=== PATIENT | female | born 1955 | race African-American/Black ===

== ENCOUNTER 2019-08-26 15:45 | Emergency (ER) | payer OTHER ==
[~2019-08-26] VITALS: Ht 152.4 cm; Wt 97.5 kg
--- NOTE | 2019-08-26 16:04 | NUR ---
BIB FAMILY FOR WORSENING L HIP/LOWER BACK PAIN X 3 DAYS. DENIES TRAUMA, TO ER BED 12, HOOKED TO MONITOR, DR BARON AT BEDSIDE
[2019-08-26] MEDS ORDERED: KETOROLAC TROMETHAMINE INJ 60 MG/2 ML VIAL IM ONE (16:22)
--- NOTE | 2019-08-26 16:27 | NUR ---
PICKED UP BY ANISH BRAY VIA [facility] FOR CT SCAN
[2019-08-26] MEDS: KETOROLAC TROMETHAMINE INJ 60 MG/2 ML VIAL IM ONE (16:28)
--- NOTE | 2019-08-26 18:46 | NUR ---
Patient discharged to home in stable condition. Assisted to waiting room via wheelchair where patient sister is waiting. Written and verbal after care instructions given. Patient verbalizes understanding of instruction.
[2019-08-26 18:47] VITALS: BP 119/69
== END 2019-08-26 18:48 | disposition home or self-care (01) ==
LOC: ER 15:45
DX: M54.41 Lumbago with sciatica, right side (principal); M51.36 Other intervertebral disc degeneration, lumbar region; I10 Essential (primary) hypertension; E11.9 Type 2 diabetes mellitus without complications; Z86.73 Personal history of transient ischemic attack (TIA), and cerebral infarction without residual deficits; Z88.6 Allergy status to analgesic agent; Z88.5 Allergy status to narcotic agent
CPT/HCPCS: 72131; 93971; 96372; 99285; J1885

== ENCOUNTER 2019-12-15 18:53 | Emergency (ER) | payer MEDICARE, OTHER ==
[~2019-12-15] VITALS: Ht 152.4 cm; Wt 97.5 kg
--- NOTE | 2019-12-15 19:09 | NUR ---
PATIENT CAME TO ER BED 9 C/O LEFT SHOULDER PAIN. PATIENT STATES THAT SHE HAS A HX OF A STROKE AND HAS WEAKNESS ON THE LEFT SIDE. PATIENT STATES THAT EARLIER TODAY SHE FELL ON THE LEFT SIDE. PATIENT SAID THAT SHE HIT HER LEFT SHOULDER ON THE SINK. PATIENT IS AAOX4. USUALLY USES A WHEELCHAIR. BREATHING EVENLY AND UNLABORED ON ROOM AIR.
--- NOTE | 2019-12-15 19:12 | NUR ---
SEEN AND EXAMINED BY ELIAS GREEN
--- NOTE | 2019-12-15 19:34 | NUR ---
XRAY AT BEDSIDE.
--- NOTE | 2019-12-15 20:10 | NUR ---
LEFT ARM SLING GIVEN TO PATIENT.
--- NOTE | 2019-12-15 20:32 | NUR ---
Patient discharged to home in stable condition. Written and verbal after care instructions given. Patient verbalizes understanding of instruction.
[2019-12-16 02:18] VITALS: BP 130/78
== END 2019-12-15 20:30 | disposition home or self-care (01) ==
LOC: ER 18:59
DX: S42.212A Unspecified displaced fracture of surgical neck of left humerus, initial encounter for closed fracture (principal); S52.125A Nondisplaced fracture of head of left radius, initial encounter for closed fracture; I10 Essential (primary) hypertension; E11.9 Type 2 diabetes mellitus without complications; Z88.5 Allergy status to narcotic agent; Z88.6 Allergy status to analgesic agent; Z86.73 Personal history of transient ischemic attack (TIA), and cerebral infarction without residual deficits; W01.0XXA Fall on same level from slipping, tripping and stumbling without subsequent striking against object, initial encounter; Y93.89 Activity, other specified; Y92.89 Other specified places as the place of occurrence of the external cause; Y99.8 Other external cause status
CPT/HCPCS: 73030-TC; 73060-TC; 73080-TC; 73090-TC; 73100-TC

== ENCOUNTER 2019-12-27 21:09 | Emergency (ER) | payer MEDICARE, OTHER ==
[~2019-12-27] VITALS: Ht 149.9 cm; Wt 93.0 kg
--- NOTE | 2019-12-27 21:41 | NUR ---
BIBFAMILY FROM HOME TO ER BED 7. AAOX4. NOT IN RESP DISTRESS. BROUGHT IN ON A WHEELCHAIR. CAME IN FOR L SHOULDER AND L KNEE PAIN S/P FALL 2 DAYS AFTER SHE HAD HER FEMORAL NECK FRACTURE HAPPENED. PAIN RATES HER PAIN 06/11. ELIAS GAONA WAS AT THE BEDSIDE FOR EVAL. PT WAS OFFERED PAIN MEDS BUT DENIED AT THIS TIME
--- NOTE | 2019-12-27 23:08 | NUR ---
pt was not dispensed with any ortho equiptment. pt already have a shoulder immobilizer upon arrival. pt needs a different kind of immobilizer however it is not available in the er.
--- NOTE | 2019-12-27 23:09 | NUR ---
Patient discharged to home in stable condition. Written and verbal after care instructions given. Patient verbalizes understanding of instruction. Pt left on a wheelchair, picked up by her sister.
[2019-12-27 23:15] VITALS: BP 161/82
== END 2019-12-27 23:16 | disposition home or self-care (01) ==
LOC: ER 21:11
DX: S42.292A Other displaced fracture of upper end of left humerus, initial encounter for closed fracture (principal); M25.562 Pain in left knee; I10 Essential (primary) hypertension; E11.9 Type 2 diabetes mellitus without complications; R53.1 Weakness; Z88.6 Allergy status to analgesic agent; Z88.5 Allergy status to narcotic agent; Z86.73 Personal history of transient ischemic attack (TIA), and cerebral infarction without residual deficits; W18.39XA Other fall on same level, initial encounter; Y93.89 Activity, other specified; Y92.89 Other specified places as the place of occurrence of the external cause; Y99.8 Other external cause status
CPT/HCPCS: 73060-TC; 73564-TC

== ENCOUNTER 2021-02-10 03:08 | Emergency (ER) | payer MEDICARE, MEDICAID ==
[~2021-02-10] VITALS: Ht 147.3 cm; Wt 97.5 kg
[2021-02-10 03:20] VITALS: BP 128/67
== END 2021-02-10 03:37 | disposition home or self-care (01) ==
LOC: ER 03:10
DX: S30.0XXA Contusion of lower back and pelvis, initial encounter (principal); I10 Essential (primary) hypertension; E11.9 Type 2 diabetes mellitus without complications; Z88.6 Allergy status to analgesic agent; Z88.5 Allergy status to narcotic agent; W18.39XA Other fall on same level, initial encounter; Y93.89 Activity, other specified; Y92.89 Other specified places as the place of occurrence of the external cause; Y99.8 Other external cause status

== ENCOUNTER 2021-10-18 03:42 | Emergency (ER) | payer MEDICARE, OTHER ==
[~2021-10-18] VITALS: Ht 147.3 cm; Wt 90.7 kg
--- NOTE | 2021-10-18 04:11 | NUR ---
BIB [facility] FOR C/O L HIP PAIN X 2 WEEKS. PT HAD A FALL EPISODE LAST MONTH. PT A/OX4. TOLERATING R/A WELL WITH NO RESP DISRESS. SAFETY MEASURES IN PLACE.
[2021-10-18] MEDS ORDERED: TRAMADOL HCL 50 MG TABLET ONE (04:13)
[2021-10-18] MEDS ORDERED: ONDANSETRON 4 MG TAB.RAPDIS ONE (04:19)
[2021-10-18] MEDS ORDERED: TRAMADOL HCL 50 MG TABLET PO ONE (04:30)
[2021-10-18] MEDS ORDERED: ONDANSETRON 4 MG TAB.RAPDIS SL ONE (04:30)
--- NOTE | 2021-10-18 05:26 | NUR ---
PT TAKEN TO CT VIA [facility]
--- NOTE | 2021-10-18 05:40 | NUR ---
PT RETURNED TO ER BED [address]
--- NOTE | 2021-10-18 07:10 | NUR ---
PT TAKEN TO RESTROOM VIA W/C. ADLS DONE.
--- NOTE | 2021-10-18 08:33 | NUR ---
Patient discharged to home in stable condition. Written and verbal after care instructions given. Patient verbalizes understanding of instruction.
[2021-10-18 08:34] VITALS: BP 128/74
--- NOTE | 2021-10-18 08:35 | NUR ---
EXPLAINED DISCHARGE INFORMATION AND MEDICATIONS TO TAKE AT HOME FOR PAIN, UNDERSTOOD INFO AND ANSWERED QUESTIONS, SAFE TRANSFER FROM [place] TO WHEEL CHAIR AND [employer] SALES MANAGER PRESENT TO PROVIDE RIDE HOME.
== END 2021-10-18 08:37 | disposition home or self-care (01) ==
LOC: ER 03:44
DX: M54.50 Low back pain, unspecified (principal); M25.552 Pain in left hip; I10 Essential (primary) hypertension; J45.909 Unspecified asthma, uncomplicated; E11.9 Type 2 diabetes mellitus without complications; Z86.73 Personal history of transient ischemic attack (TIA), and cerebral infarction without residual deficits; Z88.2 Allergy status to sulfonamides; Z88.6 Allergy status to analgesic agent; Z88.5 Allergy status to narcotic agent
CPT/HCPCS: 99284; 72131; Q0162

== ENCOUNTER 2024-04-17 06:27 | Emergency (ER) | payer MEDICARE, OTHER ==
[~2024-04-17] VITALS: Ht 147.3 cm; Wt 90.7 kg
[2024-04-17 09:34] VITALS: BP 118/62; TEMP 98.1; O2SAT 98
== END 2024-04-17 09:34 | disposition home or self-care (01) ==
LOC: ER 06:32
DX: S09.90XA Unspecified injury of head, initial encounter (principal); E11.9 Type 2 diabetes mellitus without complications; G93.89 Other specified disorders of brain; I10 Essential (primary) hypertension; I69.354 Hemiplegia and hemiparesis following cerebral infarction affecting left non-dominant side; J45.909 Unspecified asthma, uncomplicated; Z79.01 Long term (current) use of anticoagulants; Z88.2 Allergy status to sulfonamides; Z88.5 Allergy status to narcotic agent; W01.0XXA Fall on same level from slipping, tripping and stumbling without subsequent striking against object, initial encounter; Y93.89 Activity, other specified; Y92.89 Other specified places as the place of occurrence of the external cause; Y99.8 Other external cause status
CPT/HCPCS: 70450-TC

== ENCOUNTER 2024-06-25 07:38 | Emergency (ER) | payer MEDICARE, OTHER ==
[~2024-06-25] VITALS: Ht 149.9 cm; Wt 90.7 kg
[2024-06-25 07:44] VITALS: TEMP 98.1
[2024-06-25] MEDS ORDERED: KETOROLAC TROMETHAMINE 15 MG/ML VIAL ONE (08:24)
[2024-06-25] MEDS: IV NS 0.9% 1,000 ML BAG IV ONE (09:20)
[2024-06-25] MEDS: KETOROLAC TROMETHAMINE 15 MG/ML VIAL IV ONE (09:25)
[2024-06-25] MEDS ORDERED: CT SWABBABLE VALVE TRANS SET 1 EA INFUS.SET MC ONE (09:35)
[2024-06-25] MEDS ORDERED: IOHEXOL-300 100 ML VIAL IV ONE (09:35)
[2024-06-25] MEDS ORDERED: IV NS 0.9% 250 ML IV ONE (09:36)
[2024-06-25 09:41] LABS: BASOPHILS # (AUTO) 0.1 K/uL (0.0-0.2); EOSINOPHILS # (AUTO) 0.1 K/uL (0.0-0.7); EOSINOPHILS % (AUTO) 1.8 % (0.0-6.0); HEMATOCRIT 35 % (33-45); HEMOGLOBIN 11.5 g/dL (11.5-14.8); LYMPHOCYTES # (AUTO) 1.8 K/uL (0.8-4.8); LYMPHOCYTES % (AUTO) 28.8 % (20.0-44.0); MEAN CORPUSCULAR HEMOGLOBIN 28 PG (26.0-33.0); MEAN CORPUSCULAR HGB CONC 33 g/dl (31.0-36.0); MEAN CORPUSCULAR VOLUME 85 fL (82-100); MONOCYTES # (AUTO) 0.5 K/uL (0.1-1.30); MONOCYTES % (AUTO) 7.4 % (2.0-12.0); NEUTROPHILS # (AUTO) 3.8 K/uL (1.8-8.9); PLATELET COUNT (AUTO) 305 K/uL (150-450); RED BLOOD CELL COUNT(AUTO) 4.14 MIL/uL (4.0-5.2); WHITE BLOOD COUNT (AUTO) 6.3 K/uL (4.3-11.0)
[2024-06-25 09:54] LABS: LACTIC ACID 1.1 mmol/L (0.4-2.0)
[2024-06-25 09:58] LABS: CALCIUM, SERUM 9.5 mg/dL (8.5-10.1); POTASSIUM 4.7 mmol/L (3.5-5.1)
[2024-06-25 09:59] LABS: ALBUMIN 3.3 g/dL (3.4-5.0); BILIRUBIN,DIRECT 0.1 mg/dL (0.0-0.2); BILIRUBIN,TOTAL 0.4 mg/dL (0.2-1.0); CREATININE 1.1 mg/dL (0.6-1.3); TOTAL PROTEIN, SERUM 7.1 g/dL (6.4-8.2)
[2024-06-25 11:23] VITALS: BP 130/78; O2SAT 99
== END 2024-06-25 11:20 | disposition home or self-care (01) ==
LOC: ER 07:53
DX: R10.31 Right lower quadrant pain (principal); I10 Essential (primary) hypertension; E11.9 Type 2 diabetes mellitus without complications; I69.354 Hemiplegia and hemiparesis following cerebral infarction affecting left non-dominant side; J45.909 Unspecified asthma, uncomplicated; Z88.2 Allergy status to sulfonamides; Z88.5 Allergy status to narcotic agent
CPT/HCPCS: 99285; 74177; 96374; 96361; 85025; 80048; 83605; 83690; 80076; 36415; J1885; J7030; J7050; Q9967